=== PATIENT | male | born 1970 | race Caucasian/White ===

== ENCOUNTER 2019-04-17 04:33 | Emergency (ER) | payer SELFPAY ==
[~2019-04-17] VITALS: Ht 167.6 cm; Wt 63.5 kg
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
--- NOTE | 2019-04-17 04:38 | NUR ---
PATIENT AMB TO [facility] IN [place], ESCORTED BY [facility] MCPHERSON.
[2019-04-17 04:40] VITALS: BP 119/85
[2019-04-17] MEDS ORDERED: INSULIN REGULAR, HUMAN 100 UNIT/ML VIAL SUBQ ONE (05:55)
[2019-04-17] MEDS ORDERED: INSULIN REGULAR, HUMAN 100 UNIT/ML VIAL IVP ONE (06:05)
--- NOTE | 2019-04-17 06:09 | NUR ---
CHARTING ERROR IN EMAR. INSULIN HUMULIN R, 6 UNITS GIVEN IVP, NOT SUBQ.
[2019-04-17 06:25] VITALS: BP 128/77
--- NOTE | 2019-04-17 06:25 | NUR ---
Patient discharged with v/s stable. No c/o at this time. Accompanied by [facility] MCPHERSON and cleared and stable for booking. Written and verbal after care instructions given and explained. Patient verbalized understanding. Ambulatory with steady gait. All questions addressed prior to discharge. Advised to follow up with [employer]D. Origional prebook form given to [facility] [employer] officer.
== END 2019-04-17 06:25 ==
LOC: MED 04:33
DX: R73.9 Hyperglycemia, unspecified (principal); Z02.89 Encounter for other administrative examinations; V49.9XXA Car occupant (driver) (passenger) injured in unspecified traffic accident, initial encounter; Y93.89 Activity, other specified; Y92.89 Other specified places as the place of occurrence of the external cause; Y99.8 Other external cause status
CPT/HCPCS: 96374; 99283; J1815